=== PATIENT | female | born 1935 | race Caucasian/White ===

== ENCOUNTER 2018-12-19 08:08 | Day surgery (SDC) | payer MEDICARE ==
[~2018-12-19] VITALS: Ht 157.5 cm; Wt 70.3 kg
[~2018-12-19 08:08] MED LIST: CIPRO250 MG PO; DAILY MULTIPLE1 EACH PO; HYDROCHLOROTHIA25 MG PO; MACULAR HEALTH1 EACH PO; POTASSIUM CHLO10 MEQ PO; SERTRALINE HCL25 MG PO; SPIRONOLACTONE25 MG PO
--- NOTE | 2018-12-19 12:38 | NUR ---
12/19/18 1238 Rosi Weinstein 1141 PT ARRIVED IN PACU SLEEPY WITH NO C/O'S. ABD SOFT. PASSING FLATUS. 1200 SITTING UP IN BED SIPPING ON WATER. 1210 PT GETTING DRESSED WITH RN STAND BY ASSIST. 1220 DC INSTRUCTIONS GIVEN TO PT/DAUGHTER.
--- NOTE | 2018-12-20 05:51 | OR ---
[facility] [address] [place], [place] [address] Signed DATE OF OPERATION: 12/19/2018 SURGEON: Nico Zavala MD PREOPERATIVE DIAGNOSES: 1. Family history of colon cancer in her sister. 2. 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 3. Hyperplastic colonic polyps. 4. Internal hemorrhoids. 5. Chronic constipation. POSTOPERATIVE DIAGNOSES: 1. Moderate internal and external hemorrhoids. 2. Tattoo at rectosigmoid junction (15 cm). 3. A 4 mm polyp at 4 cm . 4. A 4 mm polyp at 15 cm (distal to tattoo). 5. Biopsy of the tattoo base at 15 cm. PROCEDURE PERFORMED: Colonoscopy with hot biopsy. ESTIMATED BLOOD LOSS: None. INDICATIONS: Tasha is an 83-year-old female who came to us last year with rectal bleeding and chronic constipation. In addition, her sister has a history of colon cancer. We took out a very large 3 cm villous adenomatous polyp at 15 cm at the rectosigmoid junction. We left a tattoo in that area. When we took an additional bite at the bottom of the stalk, there was some normal tissue on one side, but also a little bit of tissue on the other side. We had several hyperplastic polyps removed as well. Also, she has internal hemorrhoids. Consequently, we asked her to return in one year for followup. In the meantime, she has been using fiber with some MiraLAX for her constipation and overall says she is no much better. In the office, I gave Tasha and her daughter a booklet on colonoscopy. We reviewed colonoscopy in detail along with its risks including, but not limited to gas bloating, crampy abdominal pain, bleeding, perforation requiring surgery, and missed diagnosis. We also discussed the need for IV conscious sedation. She had expressed understanding and wished to proceed. She understands the need to have an adult person to take her home afterwards. Electronically Signed By: NICO ZAVALA MD 12/20/18 0551 PATIENT NAME: TASHA MERRILL OPERATIVE REPORT DATE OF : 31 REPORT #: [id number] PHYSICIAN: NICO ZAVALA MD PCP: MARA TOLBERT MD REPORT IS CONFIDENTIAL AND NOT TO BE RELEASED WITHOUT AUTHORIZATION [facility] [address] [place] [id number] Signed PROCEDURE NOTE: Tasha was taken into our endoscopy suite and placed in the left lateral decubitus position. She was given IV sedation with 5 mg of Versed and 175 mcg of fentanyl. A digital rectal exam was performed. She does have [id number] external hemorrhoids. The adult colonoscope was inserted and advanced under direct visualization of camera. She has a long redundant colon. We actually took some time to get through the splenic flexure and it continued to drag through the left colon and splenic flexure, but we went around the hepatic flexure and into the cecum afterwards without too much difficulty. We did need additional sedation and abdominal compression. Fortunately, the prep was good. We could see the appendiceal orifice and ileocecal valve. We took pictures throughout for photodocumentation. The scope was slowly withdrawn. Back in the distal sigmoid colon at the rectosigmoid junction at 15 cm, we found her tattoo. We took a biopsy from the base of that area and just on the distal side that was a tiny 4 mm polyp which we removed with the help of hot biopsy forceps. Back in the rectum just above the anal canal was another 4 mm polyp removed with a hot biopsy forceps. The scope was then retroflexed we can see the [id number] internal hemorrhoids as well. The gas was then suctioned out. The colonoscope removed. Tasha tolerated the procedure overall well. RECOMMENDATIONS: I will see Tasha back in my office in 7 to 14 days to review her results. Based on her age and her overall functional status, this may very well be her last colonoscopy. Nico Zavala MD [facility]/MODL /[id number] cc: Patient's Chart MD Mara Stephen MD Copies: NICO ZAVALA MD Electronically Signed By: NICO ZAVALA MD 12/20/18 0551 PATIENT NAME: TASHA MERRILL OPERATIVE REPORT DATE OF : 31 REPORT #: [id number] PHYSICIAN: NICO ZAVALA MD PCP: MARA TOLBERT MD REPORT IS CONFIDENTIAL AND NOT TO BE RELEASED WITHOUT AUTHORIZATION [address] [address] Signed ~ Electronically Signed By: NICO ZAVALA MD 12/20/18 0551 PATIENT NAME: TASHA MERRILL OPERATIVE REPORT DATE OF : 31 REPORT #: [id number] PHYSICIAN: NICO ZAVALA MD PCP: MARA TOLBERT MD REPORT IS CONFIDENTIAL AND NOT TO BE RELEASED WITHOUT AUTHORIZATION
--- NOTE | 2018-12-20 16:54 | PATH ---
[facility] [address] [place], [place] [address] Signed SPECIMEN(S): A COLON POLYP AT 15 CM SPECIMEN(S): B COLON TATTOO AT 15CM SPECIMEN(S): C COLON POLYP AT 4 CM SPECIMEN SOURCE: A. COLON POLYP AT 15 CM B. COLON TATTOO AT 15CM C. COLON POLYP AT 4 CM CLINICAL HISTORY: 3 cm villous adenomatous polyp at RST (2018); family history colon ca - sister; hyperplastic polyps/internal and external hemorrhoids; colon polyps x 2. MICROSCOPIC DESCRIPTION: Histologic sections of all submitted blocks are examined by light microscopy. These findings, together with the gross examination, support the pathologic diagnosis. FINAL PATHOLOGIC DIAGNOSIS: A. Mucosa, colon at 15 cm, biopsy: - Hyperplastic polyp. B. Mucosa, colon tattoo at 15 cm, biopsy: - No microscopic pathologic diagnosis (See comment). C. Mucosa, colon at 4 cm, biopsy: - Hyperplastic polyp. COMMENT: B -- The clinical history of a previous villous adenoma at this site is noted (received at [facility] 12/27/2017 -- [id number]). Multiple levels over three slides were examined. No evidence of villous adenoma or tubular adenoma was seen. Multiple levels over three slides were examined. VEKNATA:cml:C2NR GROSS DESCRIPTION: Three specimens are received in three containers, labeled "JL." A. The specimen, labeled "JL, colon polyp at 15 cm," is received in formalin and consists of a 0.2 cm in greatest dimension, irregular bullard-white soft tissue fragment. The specimen is entirely submitted in cassette (A1). B. The specimen, labeled "JL, colon tattoo at 15 cm," is received in formalin and consists of a 0.2 cm in greatest dimension, irregular bullard-white soft tissue PATIENT NAME: TASHA MERRILL PATHOLOGY DATE OF : 31 REPORT #: [id number] PHYSICIAN: DEVORAH PATHOLOGY PCP: TUCKER TOLBERT MD REPORT IS CONFIDENTIAL AND NOT TO BE RELEASED WITHOUT AUTHORIZATION [facility] [address] [place], [place] [address] Signed fragment. The specimen is entirely submitted in cassette (B1). C. The specimen, labeled "JL, colon polyp at 4 cm," is received in formalin and consists of a 0.3 cm in greatest dimension, irregular bullard-white soft tissue fragment. The specimen is entirely submitted in cassette (C1). AR (under the direct supervision of a pathologist) The Gross Description was prepared using a voice recognition system. The report was reviewed for accuracy; however, sound-alike word errors, addition and/or deletions may occur. If there is any question about this report, please contact Client Services. PERFORMING LABORATORY: The technical component was performed by [facility], [address] [place] [id number] (Cop Breaker: Juju Meza MD; CLIA# [id number]). [facility], [address] [address] (Cop Breaker: Omer Katz MD; CLIA# [id number]). Diagnostician: Omer Katz MD Pathologist Electronically Signed 12/20/2018 Copies: ~ PATIENT NAME: TASHA MERRILL PATHOLOGY DATE OF : 31 REPORT #: [id number] PHYSICIAN: DEVORAH ACOSTA PCP: TUCKER TOLBERT MD REPORT IS CONFIDENTIAL AND NOT TO BE RELEASED WITHOUT AUTHORIZATION
== END 2018-12-19 12:20 | disposition home or self-care (01) ==
LOC: OPS 08:08 → DS 08:13 → OPS 10:00 → DS 10:00 → OPS 12:20
PROVIDERS: Colon & Rectal Surgery
PROC: 0DBP8ZZ Excision of Rectum, Via Natural or Artificial Opening Endoscopic (ICD-10-PCS; 2018-12-19)
PROC: 0DBE8ZX Excision of Large Intestine, Via Natural or Artificial Opening Endoscopic, Diagnostic (ICD-10-PCS; 2018-12-19)
PROC: 0DBE8ZZ Excision of Large Intestine, Via Natural or Artificial Opening Endoscopic (ICD-10-PCS; principal; 2018-12-19 10:00)
DX: K63.5 Polyp of colon (principal); K62.1 Rectal polyp; K52.9 Noninfective gastroenteritis and colitis, unspecified; K64.8 Other hemorrhoids; K64.4 Residual hemorrhoidal skin tags; Z80.0 Family history of malignant neoplasm of digestive organs; Z86.010 Personal history of colon polyps; I10 Essential (primary) hypertension; E66.9 Obesity, unspecified; E03.9 Hypothyroidism, unspecified; Z98.890 Other specified postprocedural states; Z88.2 Allergy status to sulfonamides; Z79.899 Other long term (current) drug therapy
CPT/HCPCS: 99153; G0500; J2250; J3010; J7120

== ENCOUNTER 2020-10-31 09:56 | Emergency (ER) | payer MEDICARE ==
[~2020-10-31] VITALS: Ht 157.5 cm; Wt 70.3 kg
--- OUTSIDE RECORDS SUMMARY | 2020-10-31 09:58 | XMS ---
PreManage Notification: TASHA MERRILL Security [address] Clerk Events No recent Security Events currently on file CRITERIA MET - [facility] - 2 Visits in 30 Days CARE PROVIDERS There are no care providers on record at this time. Moises has no Care Guidelines for this patient. Keli VISIT COUNT (12 MO.) [address] [place] TOTAL 3 NOTE: Visits indicate total known visits. ED/C VISIT TRACKING (12 MO.) [facility] COMPLAINT: - SWOLLEN/LUMP L SIDE NECK 10/01/2020 15:17 [facility] OR TYPE: Emergency DIAGNOSES: - COVID-19 - GENERAL 01/13/2020 14:31 [facility] OR TYPE: Emergency DIAGNOSES: - NECK PAIN - Cervicalgia INPATIENT VISIT TRACKING (12 MO.) No inpatient visits to display in this time frame [email or web address]
[2020-10-31] MEDS ORDERED: SERTRALINE HCL25 MG PO (10:33)
[2020-10-31] MEDS ORDERED: HYDROCHLOROTH12.5 M1 PO (10:33)
== END 2020-10-31 13:21 | disposition home or self-care (01) ==
LOC: ED 09:56
DX: R59.0 Localized enlarged lymph nodes (principal); Z85.3 Personal history of malignant neoplasm of breast; Z88.2 Allergy status to sulfonamides; Z98.890 Other specified postprocedural states; Z79.899 Other long term (current) drug therapy
CPT/HCPCS: 99283